=== PATIENT | male | born 1995 | race Caucasian/White ===

== ENCOUNTER 2025-09-01 17:27 | Emergency (ER) | payer OTHER ==
[~2025-09-01] VITALS: Ht 180.3 cm; Wt 72.6 kg
[2025-09-01 19:54] LABS: PLATELET COUNT (AUTO) 177 K/uL (150-450); RED BLOOD CELL COUNT(AUTO) 5.21 MIL/uL (4.5-6.0); RED CELL DISTRIBUTION WIDTH 13.7 % (11.5-15.0); WHITE BLOOD COUNT (AUTO) 6.5 K/uL (4.3-11.0)
[2025-09-01] MEDS ORDERED: IOHEXOL-300 100 ML VIAL IV ONE (19:55)
[2025-09-01] MEDS ORDERED: IV NS 0.9% 250 ML IV ONE (19:56)
[2025-09-01 20:05] LABS: CALCIUM, SERUM 9.6 mg/dL (8.5-10.1); CREATININE 1.0 mg/dL (0.6-1.3); SODIUM SERUM 142.0 mmol/L (136-145); UREA NITROGEN, BLOOD 15.0 mg/dL (7-18)
[2025-09-01 20:11] LABS: ASPARTATE AMINOTRANSFERASE 14.0 U/L (15-37); TOTAL PROTEIN, SERUM 8.4 g/dL (6.4-8.2)
[2025-09-01] MEDS ORDERED: DICY10CA37 PO (20:32)
[2025-09-01 21:27] VITALS: BP 131/82; TEMP 98; O2SAT 98
== END 2025-09-01 21:27 | disposition home or self-care (01) ==
LOC: ER 17:33
DX: R10.32 Left lower quadrant pain (principal)
CPT/HCPCS: 99285; 74177; 85025; 83690; 80053; 80076; J7030; J7050; Q9967; 36415